=== PATIENT | female | born 1985 | race African-American/Black ===

== ENCOUNTER 2017-11-05 10:32 | Emergency (ER) | payer MEDICAID ==
[~2017-11-05] VITALS: Ht 149.9 cm; Wt 63.0 kg
[2017-11-05 10:32] VITALS: BP_SYST 115
[2017-11-05 12:37] LABS: BASOPHILS % (AUTO) 0.9 % (0.0-2.0); EOSINOPHILS # (AUTO) 0.5 K/uL (0.0-0.4); EOSINOPHILS % (AUTO) 9.3 % (0.0-4.0); HEMATOCRIT 33.8 % (36-48); HEMOGLOBIN 10.4 g/dL (12.0-16.0); LYMPHOCYTES # (AUTO) 1.9 K/uL (1.0-5.5); LYMPHOCYTES % (AUTO) 34.5 % (20.5-51.5); MEAN CORPUSCULAR HEMOGLOBIN 22 pg (27-31); MEAN CORPUSCULAR HGB CONC 31 % (32-36); MEAN CORPUSCULAR VOLUME 70 fL (79.0-98.0); MONOCYTES # (AUTO) 0.5 K/uL (0.0-1.0); MONOCYTES % (AUTO) 8.5 % (1.7-9.3); NEUTROPHILS # (AUTO) 2.6 K/uL (1.8-7.7); NEUTROPHILS % (AUTO) 46.8 % (40.0-70.0); PLATELET COUNT (AUTO) 362 K/uL (130-430); RED BLOOD CELL COUNT(AUTO) 4.83 MIL/uL (4.2-6.2); RED CELL DISTRIBUTION WIDTH 15.1 % (9.0-15.0); WHITE BLOOD COUNT (AUTO) 5.5 K/uL (4.8-10.8)
[2017-11-05 12:50] LABS: CALCIUM 9.8 mg/dL (8.4-11.0); CREATININE 0.85 mg/dL (0.55-1.30); POTASSIUM 4.5 mmol/L (3.5-5.1)
[2017-11-05 12:55] LABS: TOTAL BILIRUBIN 0.4 mg/dL (0.0-1.0)
[2017-11-05 13:04] LABS: PROTHROMBIN TIME 10.4 SECS (9.5-12.5)
[2017-11-05 13:49] VITALS: BP_SYST 128
== END 2017-11-05 13:49 | disposition home or self-care (01) ==
LOC: SED 10:32
DX: R51 Headache (principal); Z88.0 Allergy status to penicillin
CPT/HCPCS: 36415; 70450-TC; 80053; 81025; 85025; 85610-TC; 85730-TC; 99285

== ENCOUNTER 2018-05-16 08:35 | Day surgery (SDC) | payer MEDICAID ==
[~2018-05-16] VITALS: Ht 149.9 cm; Wt 64.4 kg
[2018-05-16 08:35] VITALS: BP_SYST 100
--- NOTE | 2018-05-16 08:35 | NUR ---
BROUGHT BACK TO BED #7 AND TRIAGED. REPORT GIVEN TO PRAVEEN
--- NOTE | 2018-05-16 08:40 | NUR ---
Pt presents to ER c/o lower abdominal pain, passing large bloody clots, pt reports that she had 2 days ago. Pt reports pain level 10/10, denies nausea / vomitint / chest pain / sob. Pt in no acute distress, speaking full sentences, AOX4, ambulatory.
--- NOTE | 2018-05-16 08:45 | NUR ---
ER at bedside examining patient.
[2018-05-16] MEDS ORDERED: NACL 0.9% 1,000 ML IV ONE (08:48)
[2018-05-16] MEDS ORDERED: KETOROLAC TROMETHAMINE 30 MG VIAL IVP ONE (09:00)
--- NOTE | 2018-05-16 09:14 | NUR ---
# 22 gauge angiocath placed to RAC. Use of asceptic technique. Opsite placed over site. Blood return noted. Flushed with 10 cc of normal saline. No evidence of infiltration noted. Patient tolerated well.
[2018-05-16 09:28] LABS: HEMATOCRIT 24.9 % (36-48); HEMOGLOBIN 7.9 g/dL (12.0-16.0); MEAN CORPUSCULAR HEMOGLOBIN 21 pg (27-31); MEAN CORPUSCULAR HGB CONC 32 % (32-36); MEAN CORPUSCULAR VOLUME 67 fL (79.0-98.0); PLATELET COUNT (AUTO) 348 K/uL (130-430); RED BLOOD CELL COUNT(AUTO) 3.73 MIL/uL (4.2-6.2); RED CELL DISTRIBUTION WIDTH 19.3 % (9.0-15.0); WHITE BLOOD COUNT (AUTO) 8.7 K/uL (4.8-10.8)
[2018-05-16 09:39] LABS: CALCIUM 8.9 mg/dL (8.4-11.0); CREATININE 1.09 mg/dL (0.55-1.30); POTASSIUM 3.6 mmol/L (3.5-5.1)
[2018-05-16 09:44] LABS: PROTHROMBIN TIME 10.1 SECS (9.5-12.5)
[2018-05-16 09:52] LABS: ALBUMIN 3.4 g/dL (3.4-4.8); TOTAL BILIRUBIN 0.7 mg/dL (0.0-1.0)
[2018-05-16 10:00] LABS: BILIRUBIN,URINE NEGATIVE (NEGATIVE); BLOOD, URINE 3+ (NEGATIVE); CLARITY/URINE SL HAZY (CLEAR); COLOR,URINE YELLOW (YELLOW); GLUCOSE,URINE NEGATIVE (NEGATIVE); KETONES,URINE NEGATIVE (NEGATIVE); LEUKOCYTE ESTERASE ,URINE NEGATIVE (NEGATIVE); NITRITE, URINE NEGATIVE (NEGATIVE); PH,URINE 5.5 (5.0-8.0); PROTEIN URINE 1+ (NEGATIVE); UROBILINOGEN,URINE 0.2 (0.2-1.0)
[2018-05-16 10:16] LABS: BAND % (MANUAL) 0 % (0-6); BASOPHILS % (MANUAL) 0 % (0-2); EOSINOPHILS % (MANUAL) 2 % (0-7); LYMPHOCYTES % (MANUAL) 13 % (20-46); MONOCYTES % (MANUAL) 11 % (0-11)
[2018-05-16 10:31] LABS: BACTERIA,URINE FEW /HPF (None Seen); MUCUS,URINE 1+ /LPF (None Seen); RBC,URINE 20-50 /HPF (0-3); WBC,URINE 0-3 /HPF (0-3); YEAST,URINE None Seen /HPF (None Seen)
[2018-05-16] MEDS ORDERED: VANCOMYCIN HCL 1,000 MG in NS 250 ML IV ONE (11:00)
[2018-05-16] MEDS ORDERED: NS 1000 ML IV.SOLN IV ONE ×2 (11:00→12:02)
--- NOTE | 2018-05-16 11:05 | NUR ---
Laboratory at bedside.
[2018-05-16] MEDS ORDERED: VANCOMYCIN HCL 1000 MG/VIAL IV ONE (11:22)
--- NOTE | 2018-05-16 11:30 | NUR ---
Dr. Castellano at bedside speaking to pt.
--- NOTE | 2018-05-16 11:45 | NUR ---
Anesthesiologist at bedside speaking to pt.
--- NOTE | 2018-05-16 11:50 | NUR ---
Consent forms for surgery and transfusion signed by pt.
[2018-05-16] MEDS ORDERED: IBUP-1971 PO (11:51)
--- NOTE | 2018-05-16 11:58 | NUR ---
Pt taken to surgery via gurney by surgical first assistant Humberto. Pt in stable condition, IV intact no signs of infiltration.
[2018-05-16] MEDS ORDERED: DOXYCYCLINE HYCLATE 100 MG VIAL IV ONE (12:02)
[2018-05-16] MEDS ORDERED: PROPOFOL 200MG/ 20ML VIAL (DIPRIVAN) IV ONE (12:02)
[2018-05-16] MEDS ORDERED: ONDANSETRON HCL 4 MG/2 ML VIAL IVP ONE (12:02)
[2018-05-16] MEDS ORDERED: fentaNYL CITRATE/PF 100 MCG/2 ML AMP IVP ONE (12:02)
[2018-05-16] MEDS ORDERED: METHYLERGONOVINE MALEATE 0.2 MG/ML AMP IM ONE (12:02)
[2018-05-16] MEDS ORDERED: MIDAZOLAM HCL 5 MG/5 ML VIAL IVP ONE (12:02)
[2018-05-16] MEDS ORDERED: SEVOFLURANE 15 MIN GAS INH ONE (12:02)
[2018-05-16] MEDS ORDERED: LR 1,000 ML IV SCH (12:53)
[2018-05-16] MEDS ORDERED: METOCLOPRAMIDE HCL 10 MG/2 ML VIAL IVP PRN (13:00)
[2018-05-16] MEDS ORDERED: MORPHINE 4 MG/ML INJ. SYRINGE IVP PRN ×3 (13:00)
[2018-05-16 14:00] VITALS: BP_SYST 110
== END 2018-05-16 14:00 | disposition home or self-care (01) ==
LOC: SED 08:35 → SMU 11:58 → SDS 12:11
PROVIDERS: ATTEND Obstetrics & Gynecology
DX: O73.1 Retained portions of placenta and membranes, without hemorrhage (principal); N93.8 Other specified abnormal uterine and vaginal bleeding; Z88.0 Allergy status to penicillin; E66.3 Overweight; Z68.28 Body mass index [BMI] 28.0-28.9, adult; Z79.899 Other long term (current) drug therapy; Z98.890 Other specified postprocedural states; D64.9 Anemia, unspecified
CPT/HCPCS: 36415; 59812; 76830; 76857; 80053; 81000; 83605; 83690; 85007; 85027; 85610; 85730; 87040; 87086; J1885; J2210; J2250; J2405; J2704; J3010; J3370; J3490; J7030